=== PATIENT | female | born 1955 | race Caucasian/White ===

== ENCOUNTER 2020-04-18 13:42 | Outpatient (CLI) | payer MEDICARE, SELFPAY ==
--- NOTE | 2020-04-18 14:03 | XR_ITS ---
WS: [id number] HAND LEFT TECHNIQUE: 3 views of the left hand CLINICAL INFORMATION: PAIN IN JOINT, HAND, ARTHRITIS COMPARISON: None. FINDINGS: Osteopenia. Mild degenerative arthritis the radiocarpal joint. Advanced degenerative arthritis at the first CMC and STT with subchondral sclerosis. Mild IP joint narrowing. Normal metacarpals. XR/XR hand LT min 3V* [id number] IMPRESSION: Degenerative arthritis worse at the first CMC and STT.
--- NOTE | 2020-04-18 14:03 | XR_ITS ---
WS: [id number] HAND RIGHT TECHNIQUE: 3 views of the right hand CLINICAL INFORMATION: PAIN IN JOINT, HAND, ARTHRITIS COMPARISON: None. FINDINGS: Osteopenia. Advanced degenerative arthritis involving the first and second CMC with subchondral scler osis and hypertrophic change. Moderate narrowing of the radiocarpal joint. Mild IP joint narrowing. XR/XR hand RT min 3V* [id number] IMPRESSION: Advanced osteoarthritis involving the first and second CMC with subchondral scl erosis and hypertrophic changes.
== END 2020-04-18 13:43 | disposition home or self-care (01) ==
LOC: RADWPI 13:49
PROVIDERS: PCP Nurse Practitioner Family; Visit Provider Nurse Practitioner Family
DX: M19.042 Primary osteoarthritis, left hand (principal); M19.041 Primary osteoarthritis, right hand
CPT/HCPCS: 73130

== ENCOUNTER 2020-05-09 10:24 | Outpatient (CLI) | payer MEDICARE, SELFPAY | END 2020-05-09 10:25 | disposition home or self-care (01) | LOC: SPT 10:25 | PROVIDERS: PCP Nurse Practitioner Family; Visit Provider Specialist | DX: Z46.89 Encounter for fitting and adjustment of other specified devices (principal); M79.641 Pain in right hand; M79.642 Pain in left hand | CPT/HCPCS: 97760; L3924 ==

== ENCOUNTER 2020-09-13 06:00 | Outpatient (RCR) | payer MEDICARE, SELFPAY | END 2020-09-28 23:59 | disposition home or self-care (01) | LOC: SOT 06:00 | PROVIDERS: PCP Nurse Practitioner Family; Referring Provider Orthopaedic Surgery Hand Surgery; Visit Provider Orthopaedic Surgery Hand Surgery | DX: M18.11 Unilateral primary osteoarthritis of first carpometacarpal joint, right hand (principal) | CPT/HCPCS: 97035; 97110; 97140; 97165 ==

== ENCOUNTER 2020-09-29 06:00 | Outpatient (RCR) | payer MEDICARE, SELFPAY | END 2020-10-29 23:59 | disposition home or self-care (01) | LOC: SOT 06:00 | PROVIDERS: PCP Nurse Practitioner Family; Referring Provider Orthopaedic Surgery Hand Surgery; Visit Provider Orthopaedic Surgery Hand Surgery | DX: M25.511 Pain in right shoulder (principal); I10 Essential (primary) hypertension; E03.9 Hypothyroidism, unspecified; E78.5 Hyperlipidemia, unspecified | CPT/HCPCS: 97035; 97110 ==

== ENCOUNTER 2020-10-04 06:00 | Outpatient (RCR) | payer MEDICARE, SELFPAY | END 2020-10-29 23:59 | disposition home or self-care (01) | LOC: SPT 06:00 | PROVIDERS: PCP Nurse Practitioner Family; Referring Provider Nurse Practitioner Family; Visit Provider Nurse Practitioner Family | DX: M25.511 Pain in right shoulder (principal); I10 Essential (primary) hypertension; E03.9 Hypothyroidism, unspecified; E78.5 Hyperlipidemia, unspecified | CPT/HCPCS: 97110; 97140; 97161 ==

== ENCOUNTER 2020-10-30 06:00 | Outpatient (RCR) | payer MEDICARE, SELFPAY | END 2020-11-29 23:59 | disposition home or self-care (01) | LOC: SPT 06:00 | PROVIDERS: PCP Nurse Practitioner Family; Referring Provider Nurse Practitioner Family; Visit Provider Nurse Practitioner Family | DX: M25.511 Pain in right shoulder (principal); I10 Essential (primary) hypertension; E03.9 Hypothyroidism, unspecified; E78.5 Hyperlipidemia, unspecified | CPT/HCPCS: 97110 ==

== ENCOUNTER 2020-10-30 06:00 | Outpatient (RCR) | payer MEDICARE, SELFPAY | END 2020-11-29 23:59 | disposition home or self-care (01) | LOC: SOT 06:00 | PROVIDERS: PCP Nurse Practitioner Family; Referring Provider Orthopaedic Surgery Hand Surgery; Visit Provider Orthopaedic Surgery Hand Surgery | DX: M18.0 Bilateral primary osteoarthritis of first carpometacarpal joints (principal) | CPT/HCPCS: 97110; 97140 ==

== ENCOUNTER 2020-11-30 06:00 | Outpatient (RCR) | payer MEDICARE, SELFPAY | END 2020-12-29 23:59 | disposition home or self-care (01) | LOC: SPT 06:00 | PROVIDERS: PCP Nurse Practitioner Family; Referring Provider Nurse Practitioner Family; Visit Provider Nurse Practitioner Family | DX: M18.0 Bilateral primary osteoarthritis of first carpometacarpal joints (principal) | CPT/HCPCS: 97110 ==

== ENCOUNTER 2020-11-30 06:00 | Outpatient (RCR) | payer MEDICARE, SELFPAY | END 2020-12-29 23:59 | disposition home or self-care (01) | LOC: SOT 06:00 | PROVIDERS: PCP Nurse Practitioner Family; Referring Provider Orthopaedic Surgery Hand Surgery; Visit Provider Orthopaedic Surgery Hand Surgery | DX: M18.11 Unilateral primary osteoarthritis of first carpometacarpal joint, right hand (principal) | CPT/HCPCS: 97110; 97112 ==

== ENCOUNTER 2020-12-14 11:42 | Outpatient (CLI) | payer MEDICARE, SELFPAY ==
--- NOTE | 2020-12-14 11:49 | MM_ITS ---
WS: [id number] BILATERAL SCREENING DIGITAL MAMMOGRAM WITH CAD HISTORY: SCREENING COMPARISON: 09/08/2018 Bilateral CC and MLO views submitted. Computer aided detection analyzed. Breast composition: The breasts are heterogeneously dense, which may obscure small masses. No suspici ous masses, microcalcifications or architectural distortion. Benign calcifications in each breast. MM/[place] [id number] IMPRESSION: BI-RADS: 2-Benign FOLLOW UP: 1 Year Follow-up
== END 2020-12-14 11:43 | disposition home or self-care (01) ==
LOC: RADSHAW 11:45
PROVIDERS: PCP Nurse Practitioner Family; Visit Provider Nurse Practitioner Family
DX: Z12.31 Encounter for screening mammogram for malignant neoplasm of breast (principal)
CPT/HCPCS: 77067

== ENCOUNTER → 2021-08-31 09:06 | Outpatient (BNVA) | payer MEDICARE, SELFPAY | PROVIDERS: PCP Nurse Practitioner Family; Referring Provider Clinical Nurse Specialist Adult Health; Visit Provider Surgery | DX: Z12.11 Encounter for screening for malignant neoplasm of colon (principal); Z12.12 Encounter for screening for malignant neoplasm of rectum | CPT/HCPCS: 99024 ==

== ENCOUNTER → 2022-01-09 08:31 | Outpatient (BNVA) | payer MEDICARE, SELFPAY | PROVIDERS: PCP Nurse Practitioner Family; Visit Provider Nurse Practitioner Family | DX: I10 Essential (primary) hypertension (principal); E03.9 Hypothyroidism, unspecified; E78.00 Pure hypercholesterolemia, unspecified | CPT/HCPCS: 80053; 80061; 84443; 85025 ==

== ENCOUNTER 2022-01-22 09:04 | Outpatient (CLI) | payer MEDICARE, SELFPAY ==
--- NOTE | 2022-01-22 09:46 | MM_ITS ---
WS: [id number] BILATERAL SCREENING DIGITAL TOMOSYNTHESIS MAMMOGRAM WITH CAD HISTORY: SCREEN COMPARISON: 12/14/2020 and 09/08/2018 Bilateral CC and MLO views with tomosynthesis and synthetic mammography submitted. Computer aided det ection analyzed. Breast composition: The breasts are heterogeneously dense, which may obscure small masses. No suspici ous masses, microcalcifications or architectural distortion. Benign scattered calcifications in each breast. MM/[place] [id number] IMPRESSION: BI-RADS: 2-Benign FOLLOW UP: 1 Year Follow-up
== END 2022-01-22 09:05 | disposition home or self-care (01) ==
LOC: RAD 09:07
PROVIDERS: PCP Nurse Practitioner Family; Visit Provider Nurse Practitioner Family
DX: Z12.31 Encounter for screening mammogram for malignant neoplasm of breast (principal)
CPT/HCPCS: 77063; 77067

== ENCOUNTER → 2022-01-25 14:00 | Outpatient (BNVA) | payer MEDICARE, SELFPAY | PROVIDERS: PCP Nurse Practitioner Family; Visit Provider Surgery | DX: Z12.11 Encounter for screening for malignant neoplasm of colon (principal) | CPT/HCPCS: 99024 ==

== ENCOUNTER 2022-03-08 08:30 | Day surgery (SDC) | payer MEDICARE, SELFPAY ==
[2022-03-07 08:22] VITALS: BMI 29.2
[2022-03-08 08:47] VITALS: BP 150/91; PULSE 74; RESP 18; TEMP 36.3; O2SAT 98
[2022-03-08] MEDS: sodium chloride 0.9% 1,000 ML 30 ML IV (08:57)
--- NOTE | 2022-03-08 09:12 | P.ANESASSM_ITS ---
Pre-Anesthetic Assessment Height/Weight: Height 1.57 m Weight 72.575 kg Temp Pulse Resp BP Pulse Ox O2 Del Method 97.3 F L 74 18 150/91 98 03/08/22 08:47 03/08/22 08:47 03/08/22 08:47 03/08/22 08:47 03/08/22 08:47 03/08/22 08:47 Preop Diagnosis: Screening colonoscopy Operation Date: 03/08/22 10:00 Proposed Procedures p Colonoscopy 55830, Z12.11(Not Applicable) - Alcides Maguire MD Familial anesthetic complications: PONV Was Beta Lavon taken within 24 hours: N/A Was Clonidine taken within 24 hours: N/A Last intake: Intake Last Liquid Date 03/07/22 Last Liquid Time 23:45 Last Solid Date 03/06/22 Last Solid Time 18:00 Social No alcohol and No tobacco Exam alert and oriented x 3 Airway Submandibular: within normal limits Cervical ROM: within normal limits Mallampati: Class II Dentition: full History/ROS No significant history except as noted Pulmonary None reported CV/HEM Hypertension None reported Hepatic None reported GI Gastroesophageal Reflux Disease Metabolic Hyperlipidemia and Thyroid Disease [facility] [place] Lower Back Pain Neuropsych None reported Anesthetic Plan ASA status: 3 Anesthesia: Anesthesia Evaluation and MAC Risk of > 500 ml blood loss (7ml/kg in children): No Medications/Allergies Home Medications Medication Instructions Recorded Confirmed Last Taken Type cmc braces #2 ea 05/09/20 03/07/22 03/07/22 Rx hydrochlorothiazide 50 mg tablet 25 mg PO DAILY 05/09/20 03/08/22 03/06/22 History aspirin 81 mg tablet,delayed 81 mg PO DAILY 08/31/21 03/08/22 03/04/22 History release atorvastatin 20 mg tablet 20 mg PO DAILY 08/31/21 03/08/22 03/06/22 History omeprazole 20 mg capsule,delayed 20 mg PO DAILY 08/31/21 03/08/22 03/06/22 History release levothyroxine 100 mcg tablet 100 mcg PO DAILY #90 tabs 01/17/22 03/08/22 03/08/22 Rx (Synthroid) losartan 100 mg tablet 100 mg PO DAILY 90 days #90 tabs 02/20/22 03/08/22 03/06/22 Rx Allergies Allergy/AdvReac Type Severity Reaction Status Date / Time No Known Allergies Allergy Verified 03/08/22 09:32 Current Medications Generic Name Dose Route Start Last Admin Trade Name Freq PRN Reason Stop Dose Admin Sodium Chloride 1,000 mls @ 30 mls/hr 03/08/22 08:45 03/08/22 08:57 Sodium Chloride 0.9% IV 30 mls/hr .Q24H JOSHUA Administration PFSH Anesthesia Medical History High blood cholesterol Hypertension Hypothyroidism Family History Mother Cancer CAD (coronary artery disease) Father CAD (coronary artery disease) Cancer Social History Smoking and tobacco status: never smoked Alcohol intake: current Desire information about alcohol rehabilitation?: No Counseling given: Yes Data Anesthesia Cardiac Studies: No Data to Display
--- NOTE | 2022-03-08 09:31 | W.PM.OPSFHP ---
Same Day Surgery H&P Indication for Procedure/HPI DATE OF PROCEDURE: March 08, 2022 CHIEF COMPLAINT/INDICATIONFOR SURGICAL PROCEDURE: I am here for colonoscopy PREOP DIAGNOSIS: Screening colonoscopy PLANNED PROCEDURE: Operation Date: 03/08/22 10:00 Proposed Procedures p Colonoscopy 50094, Z12.11(Not Applicable) - Alcides Maguire MD 01/25/22 This is a pleasant 66 years old female patient never had colonoscopy before.? Denies bleeding per rectum or weight loss or history of colon cancer.? Patient reports because of peer pressure she is here to discuss colonoscopy.? Apparently the patient had a positive Cologuard 03/08/2022 Patient comes today for screening colonoscopy ROS All systems have been reviewed negative except as for the above or per problem list. Medications/Allergies* Home Medications Medication Instructions Recorded Confirmed Type hydrochlorothiazide 50 mg tablet 25 mg PO DAILY 05/09/20 03/08/22 History aspirin 81 mg tablet,delayed 81 mg PO DAILY 08/31/21 03/08/22 History release atorvastatin 20 mg tablet 20 mg PO DAILY 08/31/21 03/08/22 History omeprazole 20 mg capsule,delayed 20 mg PO DAILY 08/31/21 03/08/22 History release Allergies/Adverse Reactions Allergy/AdvReac Type Severity Reaction Status Date / Time No Known Allergies Allergy Verified 03/08/22 09:32 Current Medications: Generic Name Dose Route Start Last Admin Trade Name Freq PRN Reason Stop Dose Admin Sodium Chloride 1,000 mls @ 30 mls/hr 03/08/22 08:45 03/08/22 08:57 Sodium Chloride 0.9% IV 30 mls/hr .Q24H JOSHUA Administration Pertinent History/Comorbid Conditions* Medical History (Updated 01/27/22 @ 16:52 by Alcides Maguire MD) High blood cholesterol Hypertension Hypothyroidism Family History (Updated 05/09/20 @ 09:01 by Sharon Yost LPN) Father Mother CAD (coronary artery disease) Mother Father Cancer Mother Father Social History Smoking and tobacco status: never smoked Alcohol intake: current Desire information about alcohol rehabilitation?: No Counseling given: Yes Pertinent Exam Findings alert, oriented x 3, regular rate & rhythm and procedure specific exam findings (Abdominal exam nontender nondistended soft) Recommendations Surgery/Procedure today (Colonoscopy with possible Bx) Coding Level of Care Code Acute [employer] Project Manager for Chg Prudencio
[2022-03-08 10:09] VITALS: BP 112/75; PULSE 70; RESP 18; TEMP 36.5; O2SAT 90
[2022-03-08 10:27] VITALS: BP 114/75; PULSE 78; RESP 18; TEMP 36.3; O2SAT 93
--- NOTE | 2022-03-08 11:46 | ANE.PACU2 ---
Inpatient post-anesthesia follow up: Airway intact: Yes Vital signs: Temperature 97.4 F Pulse Rate 78 Respiratory Rate 18 Blood Pressure 114/75 Pulse Oximetry 93 Oxygen Delivery Me thod Room Air Oxygen Flow Rate Fraction of Inspir ed Oxygen Hydration adequate: Yes Nausea and vomiting: No Pain level: 1 Mental status: Baseline
== END 2022-03-08 10:48 | disposition home or self-care (01) ==
PROVIDERS: PCP Nurse Practitioner Family; Visit Provider Surgery
PROC: 0DJD8ZZ Inspection of Lower Intestinal Tract, Via Natural or Artificial Opening Endoscopic (ICD-10-PCS; CPT 45378; principal; 2022-03-08 10:00)
DX: Z12.11 Encounter for screening for malignant neoplasm of colon (principal); Z79.82 Long term (current) use of aspirin; E78.5 Hyperlipidemia, unspecified; I10 Essential (primary) hypertension; K57.30 Diverticulosis of large intestine without perforation or abscess without bleeding; E03.9 Hypothyroidism, unspecified
CPT/HCPCS: G0121; J2704; J7030

== ENCOUNTER → 2022-03-19 14:39 | Outpatient (BNVA) | payer MEDICARE, SELFPAY | PROVIDERS: PCP Nurse Practitioner Family; Visit Provider Surgery | DX: K57.31 Diverticulosis of large intestine without perforation or abscess with bleeding (principal) | CPT/HCPCS: 99212 ==

== ENCOUNTER 2022-05-15 13:59 | Outpatient (CLI) | payer MEDICARE, SELFPAY ==
--- NOTE | 2022-05-15 14:38 | XRR_ITS ---
PROCEDURE INFORMATION: Exam: XR Chest Exam date and time: 05/15/2022 2:54 PM Age: 66 years old Clinical indication: Patient HX: Chest pain and cough for about a week TECHNIQUE: Imaging protocol: Radiologic exam of the chest. Views: 2 views. COMPARISON: No relevant prior studies available. FINDINGS: Lungs: Unremarkable. No consolidation. Pleural spaces: Unremarkable. No pleural effusion. No pneumothorax. Heart/Mediastinum: Unremarkable. No cardiomegaly. Bones/joints: Unremarkable. XR/XR chest 2V* [id number] IMPRESSION: No acute findings.
== END 2022-05-15 14:00 | disposition home or self-care (01) ==
LOC: RAD 14:02
PROVIDERS: PCP Clinical Nurse Specialist Adult Health; Visit Provider Clinical Nurse Specialist Adult Health
DX: R05.9 Cough, unspecified (principal); R07.9 Chest pain, unspecified
CPT/HCPCS: 71046

== ENCOUNTER 2022-07-02 07:48 | Outpatient (CLI) | payer MEDICARE, SELFPAY ==
--- NOTE | 2022-07-02 | ECG_ITS ---
[facility] Test Date: 2022-07-02 Pat Name: Tessie Mejia Department: Room: Gender: Female [employer]: : 1955 Requested By: Getachew Perez Order Number: [id number] Cuauhtemoc MD: Bebeto Malik M.D. Interpretive Statements NAME OF STUDY: EXERCISE SESTAMIBI STRESS TEST INDICATION: [Chest Pressure, ] EXERCISE DATA: The patient was exercised by Fabián protocol. Baseline heart rate was 71 beats per minute. Baseline blood pressure was 146/85 millimeters of mercury. Target heart rate was 129 beats per minute. Maximum heart rate achieved was 141, which was 109% of the target heart rate. Maximum blood pressure was 173/91 millimeters of mercury. Total exercise time was 5 minutes 31 seconds. Maximum METs achieved was 7. The reason for ending the test was completion of protocol. The patient complained of shortness of breath during the stress test, which then resolved at the end of the test. ELECTROCARDIOGRAM: BASELINE: Showed sinus rhythm, normal axis, no significant ST-T changes at the baseline noted. [] EXERCISE: At the peak exercise level, [] No significant ST-T changes suggestive of ischemia noted. [] RECOVERY: During the recovery period, heart rate dropped appropriately. No significant ST-T changes in the recovery suggestive of ischemia noted. [] CONCLUSION: 1. Exercise capacity fair 2. Heart rate response was appropriate. 3. Blood pressure response was appropriate. 4. Symptoms not suggestive of ischemia. 5. Electrocardiogram portion of the stress test was not suggestive of ischemia. 6. Nuclear scan will be documented separately. Electronically Signed On 07-14-2022 13:00:53 CDT by Bebeto Malik M.D. [id number]
[2022-07-02 08:12] VITALS: BMI 29.2
--- NOTE | 2022-07-02 08:12 | NMCV_ITS ---
NM jacqueline perf SPECT r/s* [id number] Tessie Mejia Age: 67 Gender: F : 1955 Exam Date: 07/02/2022 09:09 Ordering Phys: Getachew Vasquez NP Technologist: MANA Gonzalez Exam Location: [facility] Indications: CHEST PAIN, COUGH STRESS TEST [facility] IMAGE PROTOCOL Rest/Stress 1 Exercise Day Radiopharmaceutical Dose (mCi) Administration Site Administered by Rest: Tc-99m 10.9 IV MANA Lay Sestamibi Stress:Tc-99m 32.3 IV MANA Lay Sestamibi Rest: 02-Jul-2022 60 Discovery 630 Stress: 02-Jul-2022 30 Discovery 630 Radiopharmaceutical was injected at 90% maximum heart rate. Images obtained in supine and prone position. SPECT RESULTS Technical Quality: Excellent Raw Data Analysis: Normal Image Corrections: No attenuation or motion correction applied Summed Stress Score: 0 Summed Rest Score: 0 Summed Difference Score: 0 PERFUSION FINDINGS SPECT images demonstrate homogeneous tracer distribution throughout the myocardium. FUNCTIONAL RESULTS (calculated via Gated SPECT) Stress Image LV EF (%): 88 Stress EDV (mL):58 TID: 1.08 Stress ESV (mL):7 FUNCTIONAL FINDINGS: There is normal left ventricular systolic function. IMPRESSIONS 1. Normal myocardial perfusion imaging with no evidence of ischemia 2. LV systolic function is normal Bebeto Malik MD (Electronically Signed) Final Date: 07 July 2022 10:51 S
[2022-07-02 10:33] VITALS: BP 146/75; PULSE 90
== END 2022-07-02 07:49 | disposition home or self-care (01) ==
PROVIDERS: PCP Clinical Nurse Specialist Adult Health; Visit Provider Clinical Nurse Specialist Adult Health
DX: R07.89 Other chest pain (principal); R05.9 Cough, unspecified
CPT/HCPCS: 36415; 78452; 93017; A9500

== ENCOUNTER 2022-12-18 14:46 | Outpatient (CLI) | payer MEDICARE, SELFPAY ==
--- NOTE | 2022-12-18 15:00 | XR_ITS ---
WS: [id number] SCREENING DEXA SCAN [employer] CLINICAL INFORMATION: post menopausal state COMPARISON: None. FINDINGS: The L1-L4 bone mineral density measures 1.127 g/cm2. This corresponds to a T score score of -0.4 and Z score of 0.8. Left femoral neck bone mineral density measures 0.859 g/cm2. This corresponds to a T score of -1.2 an d Z score of -0.1. Right femoral neck bone mineral density measures 0.876 g/cm2. This corresponds to a T score -1.0of an d Z score of 0.1. Mean femoral neck bone mineral density measures 0.868 g/cm2. This corresponds to a T score of -1.1 an d Z score of 0.0. IMPRESSION: Normal bone mineralization lumbar spine. Osteopenia femoral necks. Patient's FRAX calculated 10 year probability for major osteoporotic fracture is 11.5% and osteoporot ic hip fracture is 2.1%.
== END 2022-12-18 14:47 | disposition home or self-care (01) ==
PROVIDERS: PCP Clinical Nurse Specialist Adult Health; Visit Provider Clinical Nurse Specialist Adult Health
DX: Z00.00 Encounter for general adult medical examination without abnormal findings (principal); Z78.0 Asymptomatic menopausal state; M85.88 Other specified disorders of bone density and structure, other site
CPT/HCPCS: 77080

== ENCOUNTER → 2023-01-07 08:54 | Outpatient (BNVA) | payer MEDICARE, SELFPAY | PROVIDERS: PCP Clinical Nurse Specialist Adult Health; Visit Provider Clinical Nurse Specialist Adult Health | DX: I10 Essential (primary) hypertension (principal); E03.9 Hypothyroidism, unspecified; Z00.00 Encounter for general adult medical examination without abnormal findings | CPT/HCPCS: 80053; 80061; 84443; 85025 ==

== ENCOUNTER 2024-04-17 10:06 | Outpatient (CLI) | payer MEDICARE, SELFPAY ==
--- NOTE | 2024-04-17 10:10 | MM_ITS ---
WS: [id number] BILATERAL SCREENING DIGITAL TOMOSYNTHESIS MAMMOGRAM WITH CAD HISTORY: SCREENING COMPARISON: 01/22/2022, 12/14/2020 Bilateral CC and MLO views with tomosynthesis and synthetic mammography submitted. Computer aided det ection analyzed. Breast composition: The breasts are heterogeneously dense, which may obscure small masses. No suspici ous masses, microcalcifications or architectural distortion. Benign scattered coarse calcifications i n each breast. MM/MM scr tomosynthesis [id number] IMPRESSION: BI-RADS: 2 - Benign FOLLOW UP: 1 Year Follow-up
== END 2024-04-17 10:07 | disposition home or self-care (01) ==
LOC: RAD 10:08
PROVIDERS: PCP Nurse Practitioner Family; Visit Provider Nurse Practitioner Family
DX: Z12.31 Encounter for screening mammogram for malignant neoplasm of breast (principal); R92.333 Mammographic heterogeneous density, bilateral breasts; R92.1 Mammographic calcification found on diagnostic imaging of breast
CPT/HCPCS: 77063; 77067